=== PATIENT | female | born 1970 | race Caucasian/White ===

== ENCOUNTER 2018-05-25 13:34 | Outpatient (CLI) | payer OTHER | END 2018-05-25 13:35 | disposition home or self-care (01) | LOC: CTENTCT 13:34 | PROVIDERS: ATTEND Otolaryngology Plastic Surgery within the Head & Neck | DX: J32.9 Chronic sinusitis, unspecified (principal) | CPT/HCPCS: 70486 ==

== ENCOUNTER 2018-06-07 08:00 | Day surgery (SDC) | payer OTHER ==
[2018-06-06 14:09] VITALS: BMI 24.7
[2018-06-07] MEDS ORDERED: Midazolam HCl 2 mg/2 ml Vial ONE (09:05)
[2018-06-07] MEDS ORDERED: Oxymetazoline HCl 0.05% ( 15 ML ) ONE ×2 (09:05→09:55)
[2018-06-07] MEDS ORDERED: Fentanyl 100 MCG/2 ML VIAL ONE ×3 (09:53→12:07)
[2018-06-07] MEDS ORDERED: Lidocaine 1% w/Epinephrine 1:100K 30 ML VIAL ONE (09:55)
[2018-06-07] MEDS ORDERED: Bacitracin Zinc Ointment 30 gm TUBE ONE (10:38)
[2018-06-07] MEDS ORDERED: PROPOFOL 200 MG/20 ML VIAL ONE (13:34)
[2018-06-07] MEDS ORDERED: Dexamethasone 20 MG/5 ML VIAL ONE (13:34)
[2018-06-07] MEDS ORDERED: Ondansetron HCl/PF 4 MG/2 ML Vial ONE (13:34)
[2018-06-07] MEDS ORDERED: Lidocaine 1% PF 5 ML VIAL ONE (13:34)
--- NOTE | 2018-06-08 10:18 | OP ---
DATE OF PROCEDURE: 06/07/2018 PREOPERATIVE DIAGNOSES: 1. Recurrent acute rhinosinusitis. 2. Left maxillary sinus mass. 3. Cephalgia. 4. Nasal septal deviation. 5. Bilateral inferior turbinate hypertrophy. 6. Nasal obstruction. POSTOPERATIVE DIAGNOSES: 1. Recurrent acute rhinosinusitis. 2. Left maxillary sinus mass. 3. Cephalgia. 4. Nasal septal deviation. 5. Bilateral inferior turbinate hypertrophy. 6. Nasal obstruction. PROCEDURES: 1. Bilateral endoscopic sinus surgery, total ethmoidectomies. 2. Bilateral endoscopic sinus surgery, maxillary antrostomy with removal of tissue on the left. 3. Nasal septoplasty 4. Bilateral inferior turbinate submucosal resection. SURGEON: Taras Sellers M.D. ESTIMATED BLOOD LOSS: 20 mL COMPLICATIONS: None. ANESTHESIA: GETA. PROCEDURE IN DETAIL: Patient was taken to the operating room and placed supine on the table. General endotracheal anesthesia was obtained by the Anesthesia staff. Tube was secured in the left lower lip. Patient was then placed in the beach chair position, and Afrin pledgets were placed in the nasal cav ity. Injections of 1% lidocaine with 1:100,000 epinephrine were made into the nasal septum as well a s the inferior turbinates. Patient was then prepped and draped in standard surgical fashion for nasal surgery. Following this, the Afrin pledgets were removed. A [place] incision was made on the left na sage septum Submucoperichondrial dissection was performed. The deviated portions of the septum include d portions of the cartilage and the bony septum. These isolated areas were removed using three cuttin g rongeurs. There was noted to be a large dorsal and caudal strut, left intact for support of the nos e. The mucoperichondrial flaps were then reapproximated using a 4-0 gut stitch. Any straight pieces o f cartilage were crushed prior to this and placed between the mucoperichondrial flaps. Following this , the inferior turbinates were then punctured with a submucosal coblation wand, and submucosal coblat ions were performed of multiple areas of the inferior portion of the anterior inferior turbinate. Please note that the submucosal microdebrider was used to submucosa resect the anterior and inferior portions of the inferior turbinates bilaterally. Following this, the 0-degree scope was advanced in the middle turbinates were then medialized with a [place] elevator. The uncinate process was identifie d. The uncinate was then anteriorly fractured using the ball-ended probe and was then removed using upbiting [place] forceps as well as the 0-degree microdebrider. Following this, the maxillary osti a was identified and was gently widened using the straight and curved microdebrider bilaterally. On the left side, the 45-degree scope and the 90 degree giraffe forceps were used to examine the left ma xillary sinus cavity. There was a solid appearing mucosally lined lesion hanging from the inferior o rbital floor. This was removed in its entirety and sent for pathological analysis. Following this, the ethmoidal bulla was punctured on its medial and inferior aspect bilaterally and was removed using the microdebrider. The grand lamella was identified and was then punctured into the posterior ethmo idal cells. Working from posterior to anterior, the ethmoidal cells were opened in a mucosal-sparing technique. Following this, the nasal cavity was irrigated. Meropacks were placed within the middle meatus. Chen splints were placed and secured. The patient tolerated the procedure well.
== END 2018-06-07 13:40 | disposition home or self-care (01) ==
LOC: SDC 08:00
PROVIDERS: ATTEND Otolaryngology Plastic Surgery within the Head & Neck
PROC: 099R8ZZ Drainage of Left Maxillary Sinus, Via Natural or Artificial Opening Endoscopic (ICD-10-PCS; principal; 2018-06-07)
PROC: 09TU8ZZ Resection of Right Ethmoid Sinus, Via Natural or Artificial Opening Endoscopic (ICD-10-PCS; principal; 2018-06-07)
PROC: 09SM0ZZ Reposition Nasal Septum, Open Approach (ICD-10-PCS; principal; 2018-06-07)
PROC: 09BL8ZZ Excision of Nasal Turbinate, Via Natural or Artificial Opening Endoscopic (ICD-10-PCS; principal; 2018-06-07)
PROC: 099Q8ZZ Drainage of Right Maxillary Sinus, Via Natural or Artificial Opening Endoscopic (ICD-10-PCS; principal; 2018-06-07)
PROC: 09TV8ZZ Resection of Left Ethmoid Sinus, Via Natural or Artificial Opening Endoscopic (ICD-10-PCS; principal; 2018-06-07)
DX: J01.91 Acute recurrent sinusitis, unspecified (principal); J32.8 Other chronic sinusitis; J34.2 Deviated nasal septum; J34.3 Hypertrophy of nasal turbinates; J34.89 Other specified disorders of nose and nasal sinuses; Z88.1 Allergy status to other antibiotic agents
CPT/HCPCS: 85014; 88305; 96374; J1100; J2001; J2250; J2405; J2704; J3010

== ENCOUNTER 2020-06-26 04:42 | Emergency (ER) | payer OTHER, SELFPAY ==
[2020-06-26 05:41] LABS: BHCG - Serum Negative (NEGATIVE); Pregs Control Background? CLEAR/WHITE (CLR/WHITE); Pregs Control Bar Appear? YES (CONTROL BAR)
[2020-06-26 05:54] LABS: ALT (SGPT) 18 U/L (8-55); AST (SGOT) 19 U/L (5-34); Alkaline Phosphatase 111 U/L (40-110); Anion Gap 13 mmol/L (10-20); BUN (Urea Nitrogen) 10 mg/dL (7.0-18.7); Bilirubin, Total 0.3 mg/dL (0.2-1.2); Calc. Creatinine Clearance 0 mL/min (70-130); Calcium 9.4 mg/dL (7.8-10.44); Carbon Dioxide 27 mmol/L (22-29); Chloride 103 mmol/L (98-107); Estimated GFR-MDRD 58; Glucose 103 mg/dL (70-105); Potassium 3.8 mmol/L (3.5-5.1); Sodium 139 mmol/L (136-145)
--- NOTE | 2020-06-26 07:43 | CT ---
CT CHEST WITHOUT CONTRAST: Date: 06/26/2020 COMPARISON: None. HISTORY: Shortness of breath. Patient feels like something is lodged in her throat and she cannot get it up or down. TECHNIQUE: Multiple contiguous axial images were obtained in a CT of the chest without contrast. Sagittal and co yanelis reformats were performed. FINDINGS: There is a calcified granuloma in the left upper lobe. There is a calcified granuloma in the right mi ddle lobe. No suspicious pulmonary nodules are seen. No pneumothorax or pleural effusion seen. No foc al infiltrates are seen. Heart is normal in size. No hilar or mediastinal lymphadenopathy seen. There are calcified hilar and mediastinal lymph nodes. There is thickening of the wall of the distal esophagus just above the gastr oesophageal junction. No dilatation of the more proximal esophagus is seen. No foreign body is seen w ithin the esophagus. Calcifications in the spleen are from prior granulomatous disease. The other visualized subdiaphragma tic structures are unremarkable. Chest wall soft tissues and osseous structures are unremarkable. IMPRESSION: There is thickening of the wall of the distal esophagus. This is nonspecific. This could represent es ophagitis from reflux disease. However, an esophageal mass must be excluded. GI consultation is recom mended. POS: [facility]
== END 2020-06-26 06:11 | disposition home or self-care (01) ==
LOC: ERS 04:42
DX: R13.10 Dysphagia, unspecified (principal); R09.89 Other specified symptoms and signs involving the circulatory and respiratory systems; I10 Essential (primary) hypertension; F41.9 Anxiety disorder, unspecified; F32.9 Major depressive disorder, single episode, unspecified; F17.290 Nicotine dependence, other tobacco product, uncomplicated; Z79.899 Other long term (current) drug therapy
CPT/HCPCS: 36415; 71250; 80053; 84703

== ENCOUNTER 2024-06-08 16:02 | Outpatient (CLI) | payer OTHER | END 2024-06-08 16:03 | disposition home or self-care (01) | LOC: BICRAD 16:02 | PROVIDERS: ATTEND Family Medicine | DX: M25.522 Pain in left elbow (principal); M70.22 Olecranon bursitis, left elbow; M77.12 Lateral epicondylitis, left elbow ==

== ENCOUNTER 2024-06-20 09:51 | Emergency (ER) | payer OTHER | END 2024-06-20 10:35 | disposition left against medical advice (07) | LOC: ERS 09:51 | DX: Z53.21 Procedure and treatment not carried out due to patient leaving prior to being seen by health care provider (principal) ==

== ENCOUNTER 2024-08-21 14:45 | Outpatient (CLI) | payer OTHER | END 2024-08-21 14:46 | disposition home or self-care (01) | LOC: BICMAMMO 14:45 | PROVIDERS: ATTEND Family Medicine | DX: N64.89 Other specified disorders of breast (principal) | CPT/HCPCS: G0279 ==

== ENCOUNTER 2024-10-23 13:28 | Outpatient (CLI) | payer OTHER | END 2024-10-23 13:29 | disposition home or self-care (01) | LOC: SCSMRI 13:28 | PROVIDERS: ATTEND Orthopaedic Surgery | DX: M47.22 Other spondylosis with radiculopathy, cervical region (principal); M48.02 Spinal stenosis, cervical region | CPT/HCPCS: 72141 ==

== ENCOUNTER 2025-07-08 15:01 | Outpatient (CLI) | payer OTHER | END 2025-07-08 15:02 | disposition home or self-care (01) | LOC: BICCT 15:01 | PROVIDERS: ATTEND Family Medicine | DX: Z12.2 Encounter for screening for malignant neoplasm of respiratory organs (principal); Z87.891 Personal history of nicotine dependence; R91.8 Other nonspecific abnormal finding of lung field | CPT/HCPCS: 71271 ==